=== PATIENT | female | born 1980 | race Caucasian/White ===

== ENCOUNTER 2023-03-08 22:32 | Emergency (ER) | payer OTHER ==
[2023-03-08] MEDS ORDERED: Sodium Chloride 0.9% 10 ML Syringe FLUSH PRN (22:55)
[2023-03-08] MEDS ORDERED: diphenhydrAMINE 50 MG/ML SDV IVPUSH ONE (22:55)
[2023-03-08] MEDS ORDERED: Ketorolac 30 MG/ML SDV IM ONE (22:56)
[2023-03-08] MEDS ORDERED: Metoclopramide 10 MG/2 ML SDV IVPUSH ONE (22:56)
== END 2023-03-08 23:41 | disposition home or self-care (01) ==
LOC: LL.ED 22:32
DX: G43.909 Migraine, unspecified, not intractable, without status migrainosus (principal); Z88.5 Allergy status to narcotic agent; Z88.8 Allergy status to other drugs, medicaments and biological substances
CPT/HCPCS: 96372; 96374; 96375; 99283-25; J1200; J1885; J2765; J3490

== ENCOUNTER 2023-05-27 19:43 | Emergency (ER) | payer OTHER ==
[2023-05-27] MEDS: hydrOXYzine HCl 25 MG Tab PO ONE (19:54)
[2023-05-27] MEDS: methylPREDNISolone Sodium Succinate 125 MG/2 ML SDV IM ONE (19:54)
== END 2023-05-27 20:20 | disposition home or self-care (01) ==
LOC: LL.ED 19:43
DX: L50.9 Urticaria, unspecified (principal); J45.909 Unspecified asthma, uncomplicated; Z88.8 Allergy status to other drugs, medicaments and biological substances; Z88.6 Allergy status to analgesic agent; Z88.5 Allergy status to narcotic agent; Z79.899 Other long term (current) drug therapy
CPT/HCPCS: 96372; 99282; 99283; A9270-GY; J2930

== ENCOUNTER 2023-08-07 21:42 | Emergency (ER) | payer OTHER ==
[2023-08-07] MEDS ORDERED: Ondansetron 4 MG/2 ML SDV ONE (21:52)
[2023-08-07] MEDS ORDERED: fentaNYL 50 MCG/ML SDV ONE (21:53)
[2023-08-07 22:03] LABS: BASOPHILS ABSOLUTE AUTO 0.03 K/uL (0.00-0.20); BASOPHILS PERCENT AUTO 0.2 % (0.0-2.0); EOSINOPHILS ABSOLUTE AUTO 0.21 K/uL (0.00-0.50); EOSINOPHILS PERCENT AUTO 1.7 % (0.0-5.0); HEMATOCRIT 40.8 % (39.0-49.0); HEMOGLOBIN 13.4 g/dL (13.1-16.8); LYMPHOCYTES ABSOLUTE AUTO 2.02 K/uL (0.50-3.50); LYMPHOCYTES PERCENT AUTO 15.9 % (10.0-50.0); MEAN CORPUSCULAR HEMOGLOBIN 31.4 pg (28.2-33.3); MEAN CORPUSCULAR HGB CONC 32.8 g/dL (31.7-36.0); MEAN CORPUSCULAR VOLUME 95.6 fL (84.0-98.0); MONOCYTES ABSOLUTE AUTO 0.54 K/uL (0.00-1.00); MONOCYTES PERCENT AUTO 4.3 % (2.0-14.0); NEUTROPHILS PERCENT AUTO 77.9 % (45.0-80.0); PLATELET COUNT,PLT 232 K/uL (150-350); RED BLOOD CELL COUNT 4.27 M/uL (4.33-5.41); RED CELL DISTRIBUTION WIDTH 12.4 % (11.2-14.1); WHITE BLOOD CELL COUNT,WBC 12.7 K/uL (4.0-10.2)
[2023-08-07 22:20] LABS: ALANINE AMINOTRANSFERASE,ALT 20 U/L (12-78); ALBUMIN 3.8 g/dL (3.4-5.0); ALKALINE PHOSPHATASE 75 IU/L (46-116); ANION GAP 9.5 meq/L (7-15); ASPARTATE AMNIOTRANSFERASE,AST 13 U/L (15-37); BILIRUBIN TOTAL 0.3 mg/dL (0.2-1.0); BLOOD UREA NITROGEN,BUN 18 mg/dL (7-18); CALCIUM 8.7 mg/dL (8.5-10.1); CARBON DIOXIDE,CO2 26.5 mmol/L (21.0-32.0); CHLORIDE,CL 101 mmol/L (98-107); CREATININE 0.83 mg/dL (0.51-1.17); ESTIMATED GFR 111 mL/min (>=60); GLUCOSE RANDOM 183 mg/dL (70-99); POTASSIUM,K 3.8 mmol/L (3.5-5.1); PROTEIN TOTAL,TP 7.7 g/dL (6.4-8.2); SODIUM,NA 137 mmol/L (136-145)
== END 2023-08-07 22:28 ==
LOC: EDSEX 21:42 → LL.ED 21:42
DX: T14.8XXA Other injury of unspecified body region, initial encounter (principal); R22.0 Localized swelling, mass and lump, head; J45.909 Unspecified asthma, uncomplicated; Z88.8 Allergy status to other drugs, medicaments and biological substances; Z88.5 Allergy status to narcotic agent; Z88.6 Allergy status to analgesic agent; Z79.899 Other long term (current) drug therapy; W17.89XA Other fall from one level to another, initial encounter
CPT/HCPCS: 36415; 71045; 72170; 80053; 85025; 96374; 96375; 99285-25

== ENCOUNTER 2024-05-15 16:08 | Emergency (ER) | payer OTHER ==
[2024-05-15] MEDS: Lidocaine 2% HCl 11 ML Jelly Filled Syringe TOP ONE (17:47)
[2024-05-15] MEDS: Lidocaine 4% Top Soln 50 ML Bottle MUCMEM ONE (19:41)
== END 2024-05-15 18:00 | disposition home or self-care (01) ==
LOC: LL.ED 16:08
DX: T23.191A Burn of first degree of multiple sites of right wrist and hand, initial encounter (principal); Z88.5 Allergy status to narcotic agent; Z88.6 Allergy status to analgesic agent; Z88.8 Allergy status to other drugs, medicaments and biological substances; X15.0XXA Contact with hot stove (kitchen), initial encounter
CPT/HCPCS: 99283; A9270